=== PATIENT | female | born 1980 | race Two or more races ===

== ENCOUNTER 2018-08-21 16:47 | Emergency (ER) | payer SELFPAY ==
[2018-08-21 16:56] VITALS: BP 121/72; BMI 26.4
--- NOTE | 2018-08-21 17:28 | PDOC ---
History of Present Illness - General Chief Complaint: Respiratory Stated Complaint: FLU SYMPTOMS Time Seen by Provider: 08/21/18 17:16 History Source: Patient Exam Limitations: No Limitations - History of Present Illness Initial Comments: 08/21/18 19:36 Patient is a 38-year-old female past medical history of diabetes, who presents to the ER with 1 day of fever, body aches, sore throat, headache and cough. Patient states she took Motrin this morning with minimal relief of her symptoms. Patient did not receive a flu shot this year. Denies nausea, vomiting , diarrhea, frequency, urgency and hematuria. Triage vital signs notable for tachycardia at 130 and fever of 102.7. Past History - Travel Traveled outside of the country in the last 30 days: No Close contact w/someone who was outside of country & ill: No - Past Medical History Allergies/Adverse Reactions: Allergies Allergy/AdvReac Type Severity Reaction Status Date / Time Iodinated Contrast- Oral and Allergy Verified 08/21/18 16:56 IV Dye [Iodinated Contrast Media - IV Dye] morphine Allergy Verified 08/21/18 16:56 Home Medications: Ambulatory Orders Insulin Glargine,Hum.rec.anlog [Lantus (10mL VIAL) -] 40 units SQ HS 05/31/16 Insulin Lispro [Humalog] 10 unit SQ AC 05/31/16 Acetaminophen [Tylenol -] 650 mg PO Q4H #40 tablet 08/21/18 Albuterol Sulfate Inhaler - [Ventolin HFA Inhaler -] 1 - 2 inh PO Q4H #1 inhaler 08/21/18 Methylprednisolone [Medrol Dose Jonh] 4 mg PO ASDIR #21 tablet 08/21/18 Ondansetron [Zofran Odt -] 4 mg SL TID #10 od.tablet 08/21/18 Oseltamivir Phosphate [Tamiflu] 75 mg PO BID #10 capsule 08/21/18 COPD: No Diabetes: Yes - Immunization History Immunization Up to Date: Yes - Suicide/Smoking/Psychosocial Hx Smoking History: Never smoked Hx Alcohol Use: No Drug/Substance Use Hx: No Substance Use Type: None Hx Substance Use Treatment: No Review of Systems - Review of Systems Able to Perform ROS?: Yes Comments:: 08/21/18 19:09 CONSTITUTIONAL: Present: Fever, chills, body aches Absent: diaphoresis, generalized weakness, malaise, loss of appetite HEENT: Present: rhinorrhea, nasal congestion, throat pain. Absent: difficulty swallowing, mouth swelling, ear pain, eye pain, visual Changes CARDIOVASCULAR: Absent: chest pain, loss of consciousness, palpitations, irregular heart rate, peripheral edema RESPIRATORY: Present: Cough Absent: shortness of breath, dyspnea with exertion, orthopnea, wheezing, stridor, hemoptysis GASTROINTESTINAL: Absent: abdominal pain, abdominal distension, nausea, vomiting, diarrhea, constipation, melena, hematochezia SKIN: Absent: rash, itching, pallor NEUROLOGIC: Present: headache Absent: focal weakness or paresthesias, dizziness, unsteady gait, seizure, mental status changes, bladder or bowel incontinence Is the patient limited Telugu proficient: No *Physical Exam - Vital Signs Last Vital Signs Temp Pulse Resp BP Pulse Ox 102.7 F H 134 H 20 121/72 99 08/21/18 16:54 08/21/18 16:54 08/21/18 16:54 08/21/18 16:54 08/21/18 16:54 - Physical Exam Comments: 08/21/18 19:09 GENERAL: Well developed, well nourished. Awake and alert. Appears uncomfortable HEENT: Normocephalic, atraumatic. PERRLA, EOMI. No conjunctival pallor. Sclera are non- icteric. Moist mucous membranes. Oropharynx is erythematous NECK: Supple. Full ROM. No JVD. Carotid pulses 2+ and symmetric, without bruits. No thyromegaly. No lymphadenopathy. CARDIOVASCULAR: Regular rate and rhythm. No murmurs, rubs, or gallops. Distal pulses are 2+ and symmetric. PULMONARY: No evidence of respiratory distress. Lungs clear to auscultation bilaterally. No wheezing, rales or rhonchi. ABDOMINAL: Soft. Non-tender. Non-distended. No rebound or guarding. No organomegaly. Normoactive bowel sounds. MUSCULOSKELETAL Normal range of motion at all joints. No bony deformities or tenderness. No CVA tenderness. EXTREMITIES: No cyanosis. No clubbing. No edema. No calf tenderness. SKIN: Warm and dry. Normal capillary refill. No rashes. No jaundice. NEUROLOGICAL: Alert, awake, appropriate. Cranial nerves 2-12 intact. No deficits to light touch and temperature in face, upper extremities and lower extremities. No motor deficits in the in face, upper extremities and lower extremities. Normoreflexic in the upper and lower extremities. Normal speech. Toes are down- going bilaterally. Gait is normal without ataxia. PSYCHIATRIC: Cooperative. Good eye contact. Appropriate mood and affect. Moderate Sedation - Procedure Monitoring Vital Signs: Procedure Monitoring Vital Signs Temperature 102.7 F H 08/21/18 16:54 Pulse Rate 134 H 08/21/18 16:54 Respiratory Rate 20 08/21/18 16:54 Blood Pressure 121/72 08/21/18 16:54 O2 Sat by Pulse Oximetry (%) 99 08/21/18 16:54 Medical Decision Making - Medical Decision Making 08/21/18 19:37 Patient is a 38-year-old female who presents to the ER for one day of fever, body aches, sore throat and cough. On exam patient with posterior erythema to the tonsils. Otherwise unremarkable lung sounds are clear bilaterally. Rapid strep and flu are positive at this time. Patient treated for strep throat with Bicillin in the ER. Patient given symptomatic treatment with relief of symptoms. Repeat temp 101.5, HR 95 Discharge home I discussed the physical exam findings, ancillary test results and final diagnoses with the patient. I answered all of the patient's questions. The patient was satisfied with the care received and felt comfortable with the discharge plan and treatment plan. The Patient agrees to follow up with the primary care physician/specialist within 24-72 hours. Return precautions were given. *DC/Admit/Observation/Transfer Diagnosis at time of Disposition: Influenza, Strep pharyngitis - Discharge Dispostion Disposition: HOME Condition at time of disposition: Stable Decision to Admit order: No - Prescriptions Prescriptions: Acetaminophen [Tylenol -] 650 mg PO Q4H #40 tablet Albuterol Sulfate Inhaler - [Ventolin HFA Inhaler -] 1 - 2 inh PO Q4H #1 inhaler Methylprednisolone [Medrol Dose Jonh] 4 mg PO ASDIR #21 tablet Ondansetron [Zofran Odt -] 4 mg SL TID #10 od.tablet Oseltamivir Phosphate [Tamiflu] 75 mg PO BID #10 capsule - Referrals Referrals: Kennedy Xie MD [Staff Physician] - - Patient Instructions Printed Discharge Instructions: DI for Strep Throat, DI for Influenza -- Adult Additional Instructions: You have the flu. This is a virus that will get better on its own in approximately 7-10 days. You will most likely have a fever for 7-10 days because of the flu. This is to be expected. Drink plenty of fluids to prevent dehydration and get plenty of rest. Warm tea and cough drops may help your symptoms as well. Take the tamiflu twice a day for 5 days to help reduce the symptoms of the flu. This medication will not cure the flu. Take the albuterol inhaler every 4 hours for cough Take the steroid pack starting tomorrow as directed Take Tylenol 650mg every 4 hours for fever Take all other medications as prescribed. You have strep throat. This is a bacterial infection. You were treated with a shot of bicillin today in the ED Please throw way your toothbrush 3 days into treatment to prevent reinfection. Please follow up with your primary care doctor next week. Return to emergency department if you have worsening pain, difficulty swallowing , changes in your voice, lightheadedness, dizziness, or any changes in your symptoms. Return to the ED for difficulty breathing, shortness of breath, weakness, or if you have any other changes in your symptoms. Usted tiene la gripe. [place] es un virus que mejorar por s solo en aproximadamente 7-10 reyes. Es muy probable que tenga fiebre amrit 7 a 10 reyes debido a la gripe. [place] es de esperar. Aaliyah muchos lquidos para prevenir la deshidratacin y descanse lo suficiente. El t caliente y las gotas para la tos tambin pueden ayudar a aliviar lluvia sntomas. [place] el tamiflu dos veces al da amrit 5 reyes para ayudar a reducir los sntomas de la gripe. [place] medicamento no curar la gripe. [place] el inhalador de albuterol cada 4 horas para la tos. [place] el paquete de esteroides a partir de maana segn las indicaciones [place] Tylenol 650 mg cada 4 horas para la fiebre. [place] todos los otros medicamentos segn lo prescrito. Tienes estreptococos en la garganta. Esta es marsha infeccin bacteriana. Te trataron con marsha inyeccin de bicilina hoy en el servicio de urgencias. Por favor, deseche davalos cepillo de dientes en el tratamiento amrit 3 reyes para prevenir la reinfeccin. Por favor michael un seguimiento con davalos mdico de atencin primaria la prxima semana. Regrese a la fabian de emergencias si tiene dolor que empeora, dificultad para tragar, cambios en davalos voz, mareos, mareos o cualquier cambio en lluvia sntomas. Regrese a la fabian de emergencias si tiene dificultad para respirar, dificultad para respirar, debilidad o si tiene algn otro cambio en lluvia sntomas. Print Language: ARABIC - Post Discharge Activity Forms/Work/School Notes: Back to Work
[2018-08-21] MEDS ORDERED: ONDANSETRON *ODT* 4 MG TABLET SL ONE (17:40)
[2018-08-21] MEDS ORDERED: IBUPROFEN 400 MG TABLET (FP) PO ONE ×2 (17:40→17:46)
[2018-08-21] MEDS ORDERED: ALBUTEROL SO4 2.5/IPRATROPIUM 0.5 INH SOL 3 ML VIAL.NEB. NEB ONE ×2 (17:46→18:12)
[2018-08-21] MEDS ORDERED: ONDANSETRON *ODT* 4 MG TABLET ONE (17:46)
[2018-08-21] MEDS: ALBUTEROL SO4 2.5/IPRATROPIUM 0.5 INH SOL 3 ML VIAL.NEB. NEB SCH ×4 (17:53→18:59)
[2018-08-21] MEDS ORDERED: DEXAMETHASONE LIQUID 0.5 MG/5 ML 240 ML BULK BOTTLE PO ONE (18:09)
[2018-08-21] MEDS ORDERED: DEXAMETHASONE SOD PHOSPHATE 10 MG/1 ML VIAL ONE (18:12)
[2018-08-21] MEDS ORDERED: PENICILLIN G BENZATHINE 1,200,000 UNIT/2 ML PFS IM ONE (18:26)
[2018-08-21] MEDS ORDERED: PENICILLIN G BENZATHINE 2,400,000 UNIT/4 ML PFS ONE (18:28)
[2018-08-21 19:03] VITALS: PULSE 95; TEMP 101.5
== END 2018-08-21 19:20 | disposition home or self-care (01) ==
LOC: JERFT 16:47
DX: J10.1 Influenza due to other identified influenza virus with other respiratory manifestations (principal); J02.0 Streptococcal pharyngitis; B95.0 Streptococcus, group A, as the cause of diseases classified elsewhere
CPT/HCPCS: 87804; 87880; 99281-25; Q0162

== ENCOUNTER 2018-08-24 02:42 | Emergency (ER) | payer SELFPAY ==
[2018-08-24 02:53] VITALS: BP 146/97; PULSE 94; TEMP 98.7; BMI 26.4
--- NOTE | 2018-08-24 02:53 | PDOC ---
History of Present Illness - General History Source: Patient Exam Limitations: No Limitations - History of Present Illness Initial Comments: 08/24/18 03:09 The patient is a 38 year old female with a significant past medical history of diabetes and kidney stones who presents to the emergency department with back pain for 1 day. The patient reports associated chest pain with breathing as well as forehead pain. It is noted that the patient was seen in the ED recently by which she was noted to be Flu B (+). She denies any fever, chills, nausea, vomiting, diarrhea, constipation or urinary symptoms. She denies any shortness of breath, or dizziness. She denies any other symptoms or complaint. <Nolvia Espinoza - Last Filed: 08/24/18 03:09> <Catarina Banuelos - Last Filed: 08/24/18 05:37> - General Chief Complaint: Chest Pain Stated Complaint: BACK/CHEST PAIN Time Seen by Provider: 08/24/18 02:52 Past History <Nolvia Espinoza - Last Filed: 08/24/18 03:09> - Past Medical History COPD: No Diabetes: Yes - Immunization History Immunization Up to Date: Yes - Suicide/Smoking/Psychosocial Hx Smoking History: Never smoked Have you smoked in the past 12 months: No Information on smoking cessation initiated: No Hx Alcohol Use: No Drug/Substance Use Hx: No Substance Use Type: None Hx Substance Use Treatment: No <Catarina Banuelos - Last Filed: 08/24/18 05:37> - Past Medical History Allergies/Adverse Reactions: Allergies Allergy/AdvReac Type Severity Reaction Status Date / Time Iodinated Contrast- Oral and Allergy Verified 08/24/18 02:53 IV Dye [Iodinated Contrast Media - IV Dye] morphine Allergy Verified 08/24/18 02:53 Home Medications: Ambulatory Orders Albuterol Sulfate Inhaler - [Ventolin HFA Inhaler -] 1 - 2 inh PO Q4H #1 inhaler 08/21/18 Methylprednisolone [Medrol Dose Jonh] 4 mg PO ASDIR #21 tablet 08/21/18 Oseltamivir Phosphate [Tamiflu] 75 mg PO BID #10 capsule 08/21/18 Review of Systems - Review of Systems Able to Perform ROS?: Yes Comments:: 08/24/18 03:09 GENERAL/CONSTITUTIONAL: No fever or chills. No weakness. HEAD, EYES, EARS, NOSE AND THROAT: (+)forehead pain. No change in vision. No ear pain or discharge. No sore throat. GASTROINTESTINAL: No nausea, vomiting, diarrhea or constipation. GENITOURINARY: No dysuria, frequency, or change in urination. CARDIOVASCULAR:(+)chest pain. No shortness of breath. RESPIRATORY: No cough, wheezing, or hemoptysis. MUSCULOSKELETAL: (+)back pain. No joint or muscle swelling or pain. No neck pain. SKIN: No rash NEUROLOGIC: No headache, vertigo, loss of consciousness, or change in strength/ sensation. ENDOCRINE: No increased thirst. No abnormal weight change. HEMATOLOGIC/LYMPHATIC: No anemia, easy bleeding, or history of blood clots. ALLERGIC/IMMUNOLOGIC: No hives or skin allergy. <Nolvia Espinoza - Last Filed: 08/24/18 03:09> *Physical Exam - Vital Signs Last Vital Signs Temp Pulse Resp BP Pulse Ox 98.7 F 94 H 21 H 146/97 97 08/24/18 02:50 08/24/18 02:50 08/24/18 02:50 08/24/18 02:50 08/24/18 02:50 - Physical Exam Comments: 08/24/18 03:09 GENERAL: Awake, in no acute distress HEAD: No signs of trauma EYES: PERRLA, EOMI, sclera anicteric, conjunctiva clear, visual acuity grossly intact ENT: Auricles normal inspection, hearing grossly normal, nares patent, oropharynx clear without exudates. Moist mucosa NECK: Normal ROM, supple, no lymphadenopathy, JVD, or masses LUNGS: Breath sounds equal, clear to auscultation bilaterally. No wheezes, and no crackles. Normal work of breathing. HEART: Regular rate and rhythm, normal S1 and S2, no murmurs, rubs or gallops ABDOMEN: Soft, nontender, normoactive bowel sounds. No guarding, no rebound. No masses. Non-distended. CHEST WALL: BACK: No midline tenderness. EXTREMITIES: Normal range of motion, no edema. No clubbing or cyanosis. No erythema, or tenderness NEUROLOGICAL: Alert, and fully oriented x4, Cranial nerves II through XII grossly intact. Normal speech, normal gait. DTRs 2/4 bilaterally. SKIN: Warm, Dry, normal turgor, no rashes or lesions noted. <Nolvia Espinoza - Last Filed: 08/24/18 03:09> - Vital Signs Last Vital Signs Temp Pulse Resp BP Pulse Ox 98.7 F 94 H 21 H 146/97 97 08/24/18 02:50 08/24/18 02:50 08/24/18 02:50 08/24/18 02:50 08/24/18 02:50 <Catarina Banuelos - Last Filed: 08/24/18 05:37> Moderate Sedation - Procedure Monitoring Vital Signs: Procedure Monitoring Vital Signs Temperature 98.7 F 08/24/18 02:50 Pulse Rate 94 H 08/24/18 02:50 Respiratory Rate 21 H 08/24/18 02:50 Blood Pressure 146/97 08/24/18 02:50 O2 Sat by Pulse Oximetry (%) 97 08/24/18 02:50 <Nolvia Espinoza - Last Filed: 08/24/18 03:09> - Procedure Monitoring Vital Signs: Procedure Monitoring Vital Signs Temperature 98.7 F 08/24/18 02:50 Pulse Rate 94 H 08/24/18 02:50 Respiratory Rate 21 H 08/24/18 02:50 Blood Pressure 146/97 08/24/18 02:50 O2 Sat by Pulse Oximetry (%) 97 08/24/18 02:50 <Catarina Banuelos - Last Filed: 08/24/18 05:37> Heart Score/ECG Review - ECG Intrepretation Comment:: 08/24/18 04:23 EKG shows a normal sinus rhythm at 95 bpm with no acute ST elevations Rhythm strip shows a sinus rhythm at 90-95 bpm <Catarina Banuelos - Last Filed: 08/24/18 05:37> ED Treatment Course - LABORATORY CBC & Chemistry Diagram: 08/24/18 03:05 08/24/18 03:05 <Catarina Banuelos - Last Filed: 08/24/18 05:37> Medical Decision Making - Critical Care Time Total Critical Care Time (minutes): 40 Critical Care Statement: The care of this patient involved high complexity decision making to prevent further life threatening deterioration of the patient 's condition and/or to evaluate & treat vital organ system(s) failure or risk of failure. - Medical Decision Making 08/24/18 04:42 38-year-old female with history of influenza B complaining of chest and back pain increased with coughing Chest x-ray shows no acute infiltrate Troponin is within normal limits There is mild elevation of patient's d-dimer, ordered prior to evaluation due to complaints On exam patient's pain was increased with deep inspiration, patient is now pain- free and resting comfortably after steroids 12 all and a DuoNeb She is not tachycardic There is no hypoxia PE extremely unlikely based on physical exam, CTA canceled due to clinical unlikelihood and ALLERGY to iodine contrast Patient states that she has been noncompliant with her insulin due to insurance issues She will be referred to the medical clinic upon discharge Patient received extensive counseling regarding blood sugar control, she was also made aware that her blood sugar may become activated due to the single dose of steroids which she received, she has agreed to check her blood sugar 3 times daily over the next 48 hours and to return to the emergency department should it remain elevated IV fluid normal saline 2 L bolus infusing at this time with a fingerstick and reevaluation pending 08/24/18 05:36 Patient remains chest pain-free. She is not tachycardic, not hypoxic and repeat fingerstick is 324. She will be discharged on metformin. <Catarina Banuelos - Last Filed: 08/24/18 05:37> *DC/Admit/Observation/Transfer - Attestations Scribe Attestion: 08/24/18 03:10 Documentation prepared by Nolvia Espinoza, acting as medical accountant for Catarina Banuelos DO, MD. <Nolvia Espinoza - Last Filed: 08/24/18 03:09> - Discharge Dispostion Decision to Admit order: No - Attestations Physician Attestion: 08/24/18 04:50 I, Dr Catarina Banuelos, attest that this document has been prepared under my direction and personally reviewed by me in its entirety. I further attest, that it accurately reflects all work, procedures and medical decision making performed by me. Normal axis falsely low doesn't caliber sugars high <Catarina Banuelos - Last Filed: 08/24/18 05:37> Diagnosis at time of Disposition: Pleuritic chest pain, Type 1 diabetes, Influenza - Discharge Dispostion Disposition: HOME Condition at time of disposition: Improved - Referrals Referrals: Kennedy Xie MD [Staff Physician] - - Patient Instructions Additional Instructions: Failure prescription and begin taking her medication today. You have been given follow-up with the medicine clinic. It is imperative that she begin proper treatment for her diabetes. Check your blood sugar 3 times a day as discussed. If your blood sugar remains above 350 after 2 checks return to the emergency department for repeat evaluation. Also return if you develop vomiting fever or return of chest pain. These could be signs of a more serious condition that can be life-threatening if left untreated.
[2018-08-24] MEDS ORDERED: ALBUTEROL SO4 2.5/IPRATROPIUM 0.5 INH SOL 3 ML VIAL.NEB. NEB ONE ×2 (03:02→03:16)
[2018-08-24] MEDS ORDERED: methylPREDNISolone NA SUCC 125 MG/2 ML VIAL IVPB ONE (03:02)
[2018-08-24] MEDS ORDERED: KETOROLAC TROMETHAMINE 30 MG/1 ML VIAL IVPUSH ONE (03:02)
[2018-08-24 03:13] LABS: HEMATOCRIT 41.9 % (32.4-45.2); HEMOGLOBIN 14.7 GM/dL (10.7-15.3); MCH 29.1 pg (25.7-33.7); MCHC 35.1 g/dl (32.0-36.0); MEAN CELL VOLUME 82.8 fl (80-96); MEAN PLT VOLUME 11.1 fl (7.5-11.1); PLATELET COUNT 205 K/MM3 (134-434); RBC 5.06 M/mm3 (3.60-5.2); RDW 14.6 % (11.6-15.6); WHITE BLOOD COUNT 8.6 K/mm3 (4.0-10.0)
[2018-08-24] MEDS ORDERED: KETOROLAC TROMETHAMINE 30 MG/1 ML VIAL ONE (03:16)
[2018-08-24] MEDS ORDERED: methylPREDNISolone NA SUCC 125 MG/2 ML VIAL ONE (03:17)
[2018-08-24] MEDS ORDERED: SODIUM CHLORIDE 1,000 ML IV STA ×2 (03:37→04:25)
[2018-08-24 03:42] LABS: ALK PHOS 134 U/L (45-117); ANION GAP 10 MMOL/L (8-16); BILIRUBIN,TOTAL 0.3 mg/dL (0.2-1); BLOOD UREA NITROGEN 14 mg/dL (7-18); CALCIUM 8.1 mg/dL (8.5-10.1); CHLORIDE 96 mmol/L (98-107); CO2 26 mmol/L (21-32); CREATININE 0.4 mg/dL (0.55-1.3); POTASSIUM 3.7 mmol/L (3.5-5.1); SGOT/AST 28 U/L (15-37); SGPT/ALT 27 U/L (13-61); SODIUM 131 mmol/L (136-145); TOT PROT 7.7 g/dl (6.4-8.2)
[2018-08-24 03:45] LABS: GLUCOSE,RANDOM 388 mg/dL (74-106)
--- NOTE | 2018-08-24 10:44 | EKG ---
Test Reason : Blood Pressure : / mmHG Vent. Rate : 095 BPM Atrial Rate : 095 BPM P-R Int : 126 ms QRS Dur : 080 ms QT Int : 344 ms P-R-T Axes : 045 022 009 degrees QTc Int : 432 ms NORMAL SINUS RHYTHM NORMAL ECG WHEN COMPARED WITH ECG OF 01-JUN-2016 02:52, NO SIGNIFICANT CHANGE WAS FOUND Confirmed by JAYA BUNN MD ([id number]) on 08/24/2018 10:44:13 AM Referred By: Confirmed By:JAYA BUNN MD
--- NOTE | 2018-08-24 21:19 | PDOC ---
*Physical Exam - Vital Signs Last Vital Signs Temp Pulse Resp BP Pulse Ox 98.7 F 94 H 21 H 146/97 100 08/24/18 02:50 08/24/18 02:50 08/24/18 02:50 08/24/18 02:50 08/24/18 03:48 <VinCatarina Salmeron - Last Filed: 08/24/18 21:19> - Vital Signs Last Vital Signs Temp Pulse Resp BP Pulse Ox 98.7 F 94 H 21 H 146/97 100 08/24/18 02:50 08/24/18 02:50 08/24/18 02:50 08/24/18 02:50 08/24/18 03:48 <Mar Marie - Last Filed: 08/24/18 21:21> ED Treatment Course - LABORATORY CBC & Chemistry Diagram: 08/24/18 03:05 08/24/18 03:05 - ADDITIONAL ORDERS Additional order review: 08/24/18 08/24/18 05:32 03:05 RBC 5.06 MCV 82.8 MCHC 35.1 RDW 14.6 MPV 11.1 POC Glucometer 324 - RADIOLOGY Radiology Studies Ordered: Category Date Time Status CHEST PA & LAT [RAD] Stat Radiology 08/24/18 03:39 Completed - Medications Given in the ED: ED Medications Discontinued Medications Generic Name Dose Route Start Last Admin Trade Name Freq PRN Reason Stop Dose Admin Albuterol/Ipratropium 1 amp 08/24/18 03:02 08/24/18 03:44 Duoneb - NEB 08/24/18 03:03 1 amp ONCE ONE Administration Sodium Chloride 1,000 mls @ 1,000 mls/hr 08/24/18 03:37 08/24/18 03:45 Normal Saline - IV 08/24/18 04:36 1,000 mls/hr ASDIR STA Administration Sodium Chloride 1,000 mls @ 1,000 mls/hr 08/24/18 04:25 08/24/18 04:42 Normal Saline - IV 08/24/18 05:24 1,000 mls/hr ASDIR STA Administration Ketorolac Tromethamine 30 mg 08/24/18 03:02 08/24/18 03:45 Toradol Injection - IVPUSH 08/24/18 03:03 30 mg ONCE ONE Administration Methylprednisolone Sodium Succinate 125 mg 08/24/18 03:02 08/24/18 03:45 Solu-Medrol - IVPB 08/24/18 03:03 125 mg ONCE ONE Administration <Catarina Banuelos Faviola - Last Filed: 08/24/18 21:19> - LABORATORY CBC & Chemistry Diagram: 08/24/18 03:05 08/24/18 03:05 - ADDITIONAL ORDERS Additional order review: 08/24/18 08/24/18 05:32 03:05 RBC 5.06 MCV 82.8 MCHC 35.1 RDW 14.6 MPV 11.1 POC Glucometer 324 - Medications Given in the ED: ED Medications Discontinued Medications Generic Name Dose Route Start Last Admin Trade Name Rachel PRN Reason Stop Dose Admin Albuterol/Ipratropium 1 amp 08/24/18 03:02 08/24/18 03:44 Duoneb - NEB 08/24/18 03:03 1 amp ONCE ONE Administration Sodium Chloride 1,000 mls @ 1,000 mls/hr 08/24/18 03:37 08/24/18 03:45 Normal Saline - IV 08/24/18 04:36 1,000 mls/hr ASDIR STA Administration Sodium Chloride 1,000 mls @ 1,000 mls/hr 08/24/18 04:25 08/24/18 04:42 Normal Saline - IV 08/24/18 05:24 1,000 mls/hr ASDIR STA Administration Ketorolac Tromethamine 30 mg 08/24/18 03:02 08/24/18 03:45 Toradol Injection - IVPUSH 08/24/18 03:03 30 mg ONCE ONE Administration Methylprednisolone Sodium Succinate 125 mg 08/24/18 03:02 08/24/18 03:45 Solu-Medrol - IVPB 08/24/18 03:03 125 mg ONCE ONE Administration <Mar Marie - Last Filed: 08/24/18 21:21> Medical Decision Making - Medical Decision Making 08/24/18 21:20 Patient was called at 9:15PM 08/24/2018. As per , her symptoms has since resolved since discharge and blood glucose levels have normalized. <Mar Marie - Last Filed: 08/24/18 21:21> *DC/Admit/Observation/Transfer <LonniejoniLoco coronaCatarina Faviola - Last Filed: 08/24/18 21:19> - Attestations Scribe Attestion: 08/24/18 21:21 Documentation prepared by Mar Marie, acting as medical detail representative for Catarina BanuelosDO. <Mar Marie - Last Filed: 08/24/18 21:21> Diagnosis at time of Disposition: Pleuritic chest pain, Type 1 diabetes, Influenza - Discharge Dispostion Disposition: HOME Condition at time of disposition: Improved - Prescriptions Prescriptions: Metformin HCl [Glucophage] 500 mg PO BID #28 tablet - Referrals Referrals: Kennedy Xie MD [Staff Physician] - - Patient Instructions Additional Instructions: Fill your prescription and begin taking yo things lastur medication today. You have been given follow-up with the medicine clinic. It is imperative that you begin proper treatment for your diabetes. Check your blood sugar 3 times a day as discussed. If your blood sugar remains above 350 after 2 checks return to the emergency department for repeat evaluation. Also, return if you develop vomiting fever or return of chest pain. These could be signs of a more serious condition that can be life-threatening if left untreated. - Post Discharge Activity
== END 2018-08-24 05:54 | disposition home or self-care (01) ==
LOC: JER 02:42
PROC: 3E0F7GC Introduction of Other Therapeutic Substance into Respiratory Tract, Via Natural or Artificial Opening (ICD-10-PCS; principal; 2018-08-24)
PROC: 3E0337Z Introduction of Electrolytic and Water Balance Substance into Peripheral Vein, Percutaneous Approach (ICD-10-PCS; 2018-08-24)
PROC: 3E0333Z Introduction of Anti-inflammatory into Peripheral Vein, Percutaneous Approach (ICD-10-PCS; 2018-08-24)
PROC: 3E0333Z Introduction of Anti-inflammatory into Peripheral Vein, Percutaneous Approach (ICD-10-PCS; 2018-08-24)
DX: R07.89 Other chest pain (principal); E10.65 Type 1 diabetes mellitus with hyperglycemia; Z79.4 Long term (current) use of insulin; J10.1 Influenza due to other identified influenza virus with other respiratory manifestations; Z87.442 Personal history of urinary calculi
CPT/HCPCS: 36415; 71046-TC-FY; 80053; 82962; 84484; 84703; 85027; 85379; 93005; 93010; 99284-25; J7030

== ENCOUNTER 2020-09-18 07:52 | Inpatient (IN) | payer OTHER ==
[2020-09-18] MEDS ORDERED: ONDANSETRON 4 MG/2 ML VIAL IVPUSH ONE (09:35)
[2020-09-18] MEDS ORDERED: SODIUM CHLORIDE 1,000 ML IV STA ×2 (09:35→14:21)
[2020-09-18] MEDS ORDERED: ACETAMINOPHEN 1000 MG/100 ML VIAL (NON FORMULARY) IVPB ONE (09:35)
[2020-09-18] MEDS ORDERED: ACETAMINOPHEN INJECTION 100 ML IVPB ONE (10:18)
[2020-09-18] MEDS ORDERED: ONDANSETRON 4 MG/2 ML VIAL ONE (10:18)
[2020-09-18 11:05] LABS: VENOUS BASE EXCESS -3.1 mmol/L (-2-2); VENOUS O2 SATURATION 56.6 % (70-80); VENOUS PH 7.38 (7.310-7.410)
[2020-09-18 11:07] LABS: BASO % 0.2 % (0-2.0); EOS % 0.2 % (0-4.5); HEMATOCRIT 45.7 % (32.4-45.2); HEMOGLOBIN 15.8 GM/dL (10.7-15.3); LYMPH % 5.4 % (8-40); MCH 29.6 pg (25.7-33.7); MCHC 34.5 g/dl (32.0-36.0); MEAN CELL VOLUME 85.9 fl (80-96); MEAN PLT VOLUME 11.6 fl (7.5-11.1); MONO % 4.3 % (3.8-10.2); NEUT % 89.9 % (42.8-82.8); PLATELET COUNT 232 K/MM3 (134-434); RBC 5.32 M/mm3 (3.60-5.2); RDW 12.8 % (11.6-15.6); WHITE BLOOD COUNT 9.6 K/mm3 (4.0-10.0)
[2020-09-18 11:13] LABS: INR 0.98 (0.83-1.09); PROTHROMBIN TIME (PATIENT) 11.9 SEC (9.7-13.0)
[2020-09-18 11:40] LABS: CALCIUM 9.1 mg/dL (8.5-10.1)
[2020-09-18 11:41] LABS: ALBUMIN 3.6 g/dl (3.4-5.0); BLOOD UREA NITROGEN 15.5 mg/dL (7-18)
[2020-09-18 11:44] LABS: CREATININE 0.5 mg/dL (0.55-1.3)
[2020-09-18 11:45] LABS: TOT PROT 8.6 g/dl (6.4-8.2)
[2020-09-18 12:00] LABS: BILIRUBIN,TOTAL 0.4 mg/dL (0.2-1)
[2020-09-18 12:14] LABS: URINE APPEARANCE CLEAR; URINE BILIRUBIN NEGATIVE (NEGATIVE); URINE COLOR YELLOW; URINE GLUCOSE (UA) 3+ (NEGATIVE)
[2020-09-18 12:17] LABS: URINE PROTEIN 2+ (NEGATIVE)
[2020-09-18 12:18] LABS: URINE KETONE 2+ (NEGATIVE); URINE LEUK ESTERASE NEGATIVE (NEGATIVE); URINE NITRITE NEGATIVE (NEGATIVE); URINE RBC 5 /uL (0-23.9); URINE UROBILINOGEN 0.2 mg/dL (0.2-1.0); URINE WBC 27.4 /uL (0-25.8)
[2020-09-18 12:19] LABS: EPI CELLS 17.8 /uL (0-25.1); HYALINE CASTS 0.25 /uL (0-3.1); URINE BACTERIA 1219.6 /uL (0-1359)
[2020-09-18] MEDS ORDERED: PIPERACILLIN/TAZOB 4.5 GM 4.5 GM in DEXTROSE 5%-WATER 100 ML IVPB ONE (15:55)
[2020-09-18] MEDS ORDERED: CEFTRIAXONE 1 GM in DEXTROSE 5%-WATER - 50 ML IVPB ONE (17:44)
[2020-09-18] MEDS ORDERED: PIPERACILLIN/TAZOB 4.5 GM 4.5 GM/100 ML BAG IVPB ONE (18:32)
[2020-09-18] MEDS ORDERED: CEFTRIAXONE 1 GM/50 ML BAG ONE (18:32)
[2020-09-18] MEDS ORDERED: ACETAMINOPHEN 325 MG TABLET (FP) PO ONE (20:11)
[2020-09-18 21:04] VITALS: BMI 27.4
[2020-09-18] MEDS: INSULIN (LEVEMIR) 100 UNITS/ML UNITS SQ SCH (21:23)
[2020-09-19] MEDS ORDERED: cefTRIAXone SODIUM 1 GM VIAL ONE (01:48)
[2020-09-19] MEDS ORDERED: DEXTROSE 5%-WATER - 50 ML IVPB ONE (01:49)
[2020-09-19] MEDS ORDERED: CEFTRIAXONE 1 GM in DEXTROSE 5%-WATER - 50 ML IVPB ONE (02:00)
[2020-09-19] MEDS: INSULIN (LEVEMIR) 100 UNITS/ML UNITS SQ SCH ×2 (06:07→21:01)
[2020-09-19 07:38] LABS: BLOOD UREA NITROGEN 7.2 mg/dL (7-18)
[2020-09-19 07:39] LABS: CALCIUM 7.9 mg/dL (8.5-10.1)
[2020-09-19 07:41] LABS: BASO % 0.2 % (0-2.0); EOS % 0.8 % (0-4.5); HEMOGLOBIN 12.5 GM/dL (10.7-15.3); LYMPH % 21.5 % (8-40); MCH 29.1 pg (25.7-33.7); MCHC 33.7 g/dl (32.0-36.0); MEAN CELL VOLUME 86.2 fl (80-96); MEAN PLT VOLUME 11.8 fl (7.5-11.1); MONO % 11.4 % (3.8-10.2); NEUT % 66.1 % (42.8-82.8); PLATELET COUNT 205 K/MM3 (134-434); RBC 4.29 M/mm3 (3.60-5.2); WHITE BLOOD COUNT 5.6 K/mm3 (4.0-10.0)
[2020-09-19 07:42] LABS: CREATININE 0.5 mg/dL (0.55-1.3); PHOSPHOROUS 3.5 mg/dL (2.5-4.9)
[2020-09-19 07:43] LABS: BILIRUBIN,TOTAL 1.1 mg/dL (0.2-1)
[2020-09-19 07:49] LABS: ALBUMIN 2.7 g/dl (3.4-5.0); TOT PROT 6.2 g/dl (6.4-8.2)
[2020-09-19] MEDS: ENOXAPARIN NA (PORCINE) 40 MG/0.4 ML DISP.SYRIN SQ SCH (09:56)
[2020-09-19] MEDS ORDERED: PNEUMOC 13-VAL CONJ-DIP CRM/PF 0.5 ML DISP.SYRIN IM ONE (10:00)
[2020-09-19] MEDS ORDERED: FLU VACCINE (FLULAVAL) PF 60 MCG/0.5 ML SYRINGE 2020-2021 IM ONE (10:00)
[2020-09-19] MEDS ORDERED: PNEUMOCOCCAL 23 VACCINE 0.5 ML VIAL IM ONE (10:00)
[2020-09-20] MEDS: INSULIN (LEVEMIR) 100 UNITS/ML UNITS SQ SCH (06:01)
[2020-09-20 07:30] LABS: BASO % 0.2 % (0-2.0); EOS % 0.3 % (0-4.5); HEMATOCRIT 36.3 % (32.4-45.2); HEMOGLOBIN 12.3 GM/dL (10.7-15.3); LYMPH % 16.7 % (8-40); MCH 29.2 pg (25.7-33.7); MCHC 33.9 g/dl (32.0-36.0); MEAN PLT VOLUME 11.2 fl (7.5-11.1); NEUT % 73.8 % (42.8-82.8); PLATELET COUNT 220 K/MM3 (134-434); RBC 4.22 M/mm3 (3.60-5.2); WHITE BLOOD COUNT 8.5 K/mm3 (4.0-10.0)
[2020-09-20 07:31] LABS: BLOOD UREA NITROGEN 11.4 mg/dL (7-18); CALCIUM 8.5 mg/dL (8.5-10.1)
[2020-09-20 07:32] LABS: ALBUMIN 2.9 g/dl (3.4-5.0)
[2020-09-20 07:34] LABS: BILIRUBIN,TOTAL 0.2 mg/dL (0.2-1); CREATININE 0.3 mg/dL (0.55-1.3); TOT PROT 6.6 g/dl (6.4-8.2)
[2020-09-20 07:35] LABS: PHOSPHOROUS 3.5 mg/dL (2.5-4.9)
[2020-09-20] MEDS: ENOXAPARIN NA (PORCINE) 40 MG/0.4 ML DISP.SYRIN SQ SCH (09:13)
[2020-09-20 13:37] VITALS: BP 125/74; PULSE 85; TEMP 98.6
[2020-09-21 16:12] LABS: HEP B CORE AB, TOT Negative (Negative)
== END 2020-09-20 18:24 | disposition home or self-care (01) | DRG 251 ==
LOC: JER 07:52 → JERBED 17:18 → J7W 20:04
PROVIDERS: ADMIT Internal Medicine; ATTEND Internal Medicine
DX: R10.9 Unspecified abdominal pain (principal); E11.65 Type 2 diabetes mellitus with hyperglycemia; Z79.4 Long term (current) use of insulin; R74.01 Elevation of levels of liver transaminase levels; R79.89 Other specified abnormal findings of blood chemistry; E80.6 Other disorders of bilirubin metabolism
CPT/HCPCS: 36415; 71046-TC-FY; 74181-TC; 76705-TC; 80053; 80074; 80307; 81003; 82010; 82550; 82803; 82962; 83036; 83605; 83690; 83735; 84100; 84703; 85025; 85610; 86704; 86706; 86707; 86708; 86709; 86803; 87040; 87086; 87186; 87340; 87799; 90732; 93005; 93010; 93976; 99285-25; C9803; G0008; G0009; J0131; Q2036; U0003

== ENCOUNTER 2021-07-20 18:55 | Emergency (ER) | payer OTHER ==
[2021-07-20 19:20] VITALS: BP 119/76; PULSE 94; TEMP 97.8; BMI 23.4
[2021-07-20] MEDS ORDERED: METOCLOPRAMIDE HCL INJECTION 10 MG/2 ML VIAL IVPUSH ONE (19:39)
[2021-07-20] MEDS ORDERED: ACETAMINOPHEN 500 MG TABLET (FP) PO ONE (19:39)
[2021-07-20] MEDS ORDERED: SODIUM CHLORIDE 1,000 ML IV STA (19:39)
[2021-07-20] MEDS ORDERED: ACETAMINOPHEN 325 MG TABLET (FP) ONE (20:00)
[2021-07-20] MEDS ORDERED: METOCLOPRAMIDE HCL INJECTION 10 MG/2 ML VIAL ONE (20:01)
== END 2021-07-20 22:44 | disposition home or self-care (01) ==
LOC: JER 18:55
PROC: 3E033GC Introduction of Other Therapeutic Substance into Peripheral Vein, Percutaneous Approach (ICD-10-PCS; principal; 2021-07-20)
DX: B34.9 Viral infection, unspecified (principal)
CPT/HCPCS: 71046-TC-FY; 96361; 96374; 96375; 99284-25; C9803; U0003; U0005

== ENCOUNTER 2021-07-28 11:00 | Emergency (ER) | payer OTHER ==
[2021-07-28 11:10] VITALS: BP 121/81; PULSE 90; TEMP 97.9; BMI 24.4
[2021-07-28] MEDS ORDERED: ACETAMINOPHEN 500 MG TABLET (FP) PO ONE (12:37)
[2021-07-28] MEDS ORDERED: ACETAMINOPHEN 500 MG TABLET (FP) ONE (12:38)
[2021-07-28 12:58] LABS: EPI CELLS 10 /uL (0-25.1); HYALINE CASTS 0 /uL (0-3.1); URINE APPEARANCE CLEAR; URINE BACTERIA 15 /uL (0-1359); URINE BILIRUBIN NEGATIVE (NEGATIVE); URINE COLOR ORANGE; URINE GLUCOSE (UA) 3+ (NEGATIVE); URINE KETONE 1+ (NEGATIVE); URINE LEUK ESTERASE NEGATIVE (NEGATIVE); URINE NITRITE NEGATIVE (NEGATIVE); URINE PROTEIN 3+ (NEGATIVE); URINE RBC 4620 /uL (0-23.9); URINE UROBILINOGEN 0.2 mg/dL (0.2-1.0); URINE WBC 41 /uL (0-25.8)
[2021-07-28 13:01] LABS: BASO % 0.3 % (0-2.0); EOS % 0.7 % (0-4.5); HEMATOCRIT 44.1 % (32.4-45.2); LYMPH % 17.7 % (8-40); MCH 28.6 pg (25.7-33.7); MEAN CELL VOLUME 84.2 fl (80-96); MEAN PLT VOLUME 10.8 fl (7.5-11.1); MONO % 6.5 % (3.8-10.2); NEUT % 74.8 % (42.8-82.8); PLATELET COUNT 236 10^3/uL (134-434); RBC 5.24 M/mm3 (3.60-5.2); RDW 13.5 % (11.6-15.6); WHITE BLOOD COUNT 10.7 K/mm3 (4.0-10.0)
[2021-07-28 13:07] LABS: HCG,QUALITATIVE URINE Negative
[2021-07-28 13:27] LABS: BLOOD UREA NITROGEN 8.2 mg/dL (7-18)
[2021-07-28 13:31] LABS: CREATININE 0.4 mg/dL (0.55-1.3)
[2021-07-28] MEDS ORDERED: FLUCONAZOLE 150 MG TABLET PO ONE ×2 (15:05→15:07)
== END 2021-07-28 15:12 | disposition home or self-care (01) ==
LOC: JER 11:00 → JERFT 11:00
DX: B37.3 Candidiasis of vulva and vagina (principal)
CPT/HCPCS: 36415; 74176-TC; 80048; 81003; 84703; 85025; 87070; 87077; 87086; 87205; 87491; 87591; 87661; 99284-25

== ENCOUNTER 2022-04-20 23:32 | Inpatient (IN) | payer OTHER ==
[2022-04-21] MEDS ORDERED: ONDANSETRON 4 MG/2 ML VIAL IVPUSH ONE (01:17)
[2022-04-21] MEDS ORDERED: FAMOTIDINE 20 MG/50 ML IVPB 20 MG/50 ML MG IVPB ONE ×2 (01:17→02:56)
[2022-04-21] MEDS ORDERED: MAG HYDROX/AL HYDROX/SIMETH -MYLANTA- ORAL SUSPENSION PO ONE (01:17)
[2022-04-21] MEDS ORDERED: SUCRALFATE 1 GM TABLET (FP) PO ONE (01:17)
[2022-04-21] MEDS ORDERED: ACETAMINOPHEN 1000 MG/100 ML BAG IVPB ONE ×2 (01:17→02:41)
[2022-04-21] MEDS ORDERED: LACTATED RINGERS SOLUTION 1000 ML INFUS.BAG IV ONE (02:54)
[2022-04-21] MEDS ORDERED: ONDANSETRON 4 MG/2 ML VIAL ONE (02:56)
[2022-04-21] MEDS ORDERED: ACETAMINOPHEN INJECTION 100 ML IVPB ONE (02:56)
[2022-04-21 03:35] LABS: VENOUS BASE EXCESS 1.6 mmol/L (-2-2); VENOUS O2 SATURATION 71.2 % (70-80); VENOUS PCO2 40.6 mmHg (38-52); VENOUS PH 7.426 (7.310-7.410)
[2022-04-21 03:40] LABS: EPI CELLS 30 /uL (0-25.1); HYALINE CASTS 1 /uL (0-3.1); URINE APPEARANCE CLEAR; URINE BACTERIA 485 /uL (0-1359); URINE BILIRUBIN NEGATIVE (NEGATIVE); URINE COLOR YELLOW; URINE GLUCOSE (UA) 3+ (NEGATIVE); URINE KETONE 2+ (NEGATIVE); URINE LEUK ESTERASE NEGATIVE (NEGATIVE); URINE NITRITE NEGATIVE (NEGATIVE); URINE PROTEIN 3+ (NEGATIVE); URINE RBC 13 /uL (0-23.9); URINE UROBILINOGEN 0.2 mg/dL (0.2-1.0); URINE WBC 46 /uL (0-25.8)
[2022-04-21 03:41] LABS: INR 0.92 (0.83-1.09); PROTHROMBIN TIME (PATIENT) 10.6 SEC (9.7-13.0)
[2022-04-21 03:48] LABS: CHLORIDE 101 mmol/L (98-107); SODIUM 134 mmol/L (136-145)
[2022-04-21 03:51] LABS: ALBUMIN 3.4 g/dl (3.4-5.0); ANION GAP 9 MMOL/L (8-16); BLOOD UREA NITROGEN 10.5 mg/dL (7-18); CO2 24 mmol/L (21-32); GLUCOSE,RANDOM 282 mg/dL (74-106); LIPASE 49 U/L (73-393)
[2022-04-21 03:53] LABS: CREATININE 0.5 mg/dL (0.55-1.3)
[2022-04-21 03:54] LABS: SGOT/AST 83 U/L (15-37)
[2022-04-21 03:55] LABS: BILIRUBIN,TOTAL 0.4 mg/dL (0.2-1); TOT PROT 8.1 g/dl (6.4-8.2)
[2022-04-21 03:56] LABS: ALK PHOS 103 U/L (45-117)
[2022-04-21 04:22] LABS: BASO % 0.2 % (0-2.0); EOS % 0.1 % (0-4.5); HEMATOCRIT 35.3 % (32.4-45.2); HEMOGLOBIN 11.9 GM/dL (10.7-15.3); LYMPH % 7.7 % (8-40); MCH 28.2 pg (25.7-33.7); MCHC 33.8 g/dl (32.0-36.0); MEAN CELL VOLUME 83.5 fl (80-96); MEAN PLT VOLUME 10.7 fl (7.5-11.1); MONO % 5.2 % (3.8-10.2); NEUT % 86.8 % (42.8-82.8); PLATELET COUNT 206 10^3/uL (134-434); RBC 4.23 M/mm3 (3.60-5.2); RDW 13.4 % (11.6-15.6); WHITE BLOOD COUNT 15.9 K/mm3 (4.0-10.0)
[2022-04-21 04:40] LABS: CALCIUM 8.1 mg/dL (8.5-10.1)
[2022-04-21 04:41] LABS: BLOOD UREA NITROGEN 8.8 mg/dL (7-18)
[2022-04-21 04:44] LABS: CREATININE 0.4 mg/dL (0.55-1.3)
[2022-04-21 04:56] LABS: SGPT/ALT 25 U/L (13-61)
[2022-04-21] MEDS ORDERED: INSULIN (NOVOLOG) ASPART 100 UNITS/ML 10ML VIAL SQ ONE (05:06)
[2022-04-21] MEDS ORDERED: POTASSIUM CHLORIDE TABS 20 MEQ TABLET.ER (FP) PO ONE ×2 (05:08→05:32)
[2022-04-21] MEDS ORDERED: KCL 10 MEQ IVPB 10 MEQ/100 ML INFUS.BAG IVPB ONE (05:32)
[2022-04-21] MEDS ORDERED: PIPERACILLIN/TAZOB 3.375 GM 3.375 GM/50 ML BAG IVPB ONE (05:33)
[2022-04-21] MEDS: KCL 10 MEQ IVPB 10 MEQ/100 ML INFUS.BAG IVPB SCH ×3 (05:42→09:28)
[2022-04-21] MEDS: SODIUM CHLORIDE 1,000 ML IV SCH ×3 (05:42→23:23)
[2022-04-21 05:46] LABS: MAGNESIUM 1.8 mg/dL (1.8-2.4)
[2022-04-21 06:59] VITALS: BMI 24.3
[2022-04-21] MEDS: INSULIN SLIDING SCALE (NOVOLOG) 1 VIAL SQ SCH ×4 (07:36→21:09)
[2022-04-21] MEDS ORDERED: METOCLOPRAMIDE HCL INJECTION 10 MG/2 ML VIAL IVPUSH SCH (08:30)
[2022-04-21 08:32] LABS: YEAST MANY PRESENT (NEGATIVE)
[2022-04-21] MEDS ORDERED: PIPERACILLIN/TAZOB 3.375 GM 3.375 GM in DEXTROSE 5%-WATER - 50 ML IVPB ONE (08:45)
[2022-04-21 09:00] LABS: CALCIUM 8.5 mg/dL (8.5-10.1)
[2022-04-21 09:04] LABS: CREATININE 0.4 mg/dL (0.55-1.3)
[2022-04-21] MEDS: PANTOPRAZOLE SODIUM 40 MG VIAL IVPUSH SCH (09:40)
[2022-04-21] MEDS: METOCLOPRAMIDE HCL INJECTION 10 MG/2 ML VIAL IVPB SCH ×2 (09:40→16:34)
[2022-04-21] MEDS: ENOXAPARIN NA (PORCINE) 40 MG/0.4 ML DISP.SYRIN SQ SCH (09:40)
[2022-04-21] MEDS: ACETAMINOPHEN 325 MG TABLET (FP) PO PRN ×2 (12:02→18:33)
[2022-04-21] MEDS ORDERED: CEFTRIAXONE 1 GM in DEXTROSE 5%-WATER - 50 ML IVPB SCH (16:45)
[2022-04-21] MEDS: PIPERACILLIN/TAZOB 3.375 GM 3.375 GM in DEXTROSE 5%-WATER - 50 ML IVPB SCH (20:47)
[2022-04-22] MEDS: PIPERACILLIN/TAZOB 3.375 GM 3.375 GM in DEXTROSE 5%-WATER - 50 ML IVPB SCH ×4 (02:08→11:44)
[2022-04-22 02:22] LABS: PH,URINE 5.5 (5.0-8.0); URINE APPEARANCE CLEAR; URINE BILIRUBIN NEGATIVE (NEGATIVE); URINE COLOR YELLOW; URINE GLUCOSE (UA) 3+ (NEGATIVE); URINE KETONE 1+ (NEGATIVE); URINE LEUK ESTERASE NEGATIVE (NEGATIVE); URINE NITRITE NEGATIVE (NEGATIVE); URINE PROTEIN TRACE (NEGATIVE); URINE UROBILINOGEN 0.2 mg/dL (0.2-1.0)
[2022-04-22] MEDS: ACETAMINOPHEN 325 MG TABLET (FP) PO PRN (02:53)
[2022-04-22] MEDS: INSULIN SLIDING SCALE (NOVOLOG) 1 VIAL SQ SCH ×3 (06:17→16:32)
[2022-04-22] MEDS ORDERED: INSULIN (LEVEMIR) 100 UNITS/ML UNITS SQ ONE (08:26)
[2022-04-22] MEDS: PANTOPRAZOLE SODIUM 40 MG VIAL IVPUSH SCH (09:43)
[2022-04-22] MEDS: ENOXAPARIN NA (PORCINE) 40 MG/0.4 ML DISP.SYRIN SQ SCH (09:43)
[2022-04-22 10:25] LABS: BASO % 0.2 % (0-2.0); EOS % 0.5 % (0-4.5); HEMATOCRIT 33.4 % (32.4-45.2); HEMOGLOBIN 11.1 GM/dL (10.7-15.3); LYMPH % 17.1 % (8-40); MCH 27.9 pg (25.7-33.7); MCHC 33.2 g/dl (32.0-36.0); MEAN CELL VOLUME 83.9 fl (80-96); MEAN PLT VOLUME 11.3 fl (7.5-11.1); MONO % 8.4 % (3.8-10.2); NEUT % 73.8 % (42.8-82.8); PLATELET COUNT 203 10^3/uL (134-434); RBC 3.98 M/mm3 (3.60-5.2); RDW 13.7 % (11.6-15.6); WHITE BLOOD COUNT 11.2 K/mm3 (4.0-10.0)
[2022-04-22 10:57] LABS: BLOOD UREA NITROGEN 5.2 mg/dL (7-18); CALCIUM 8.3 mg/dL (8.5-10.1); MAGNESIUM 2.1 mg/dL (1.8-2.4)
[2022-04-22 11:00] LABS: CREATININE 0.2 mg/dL (0.55-1.3); PHOSPHOROUS 2.2 mg/dL (2.5-4.9)
[2022-04-22 11:05] LABS: BILIRUBIN,TOTAL 0.3 mg/dL (0.2-1)
[2022-04-22 11:16] LABS: ALBUMIN 2.5 g/dl (3.4-5.0); TOT PROT 5.9 g/dl (6.4-8.2)
[2022-04-22 13:01] LABS: HIV INTERPRETATION NEGATIVE (NEGATIVE)
[2022-04-22] MEDS ORDERED: POTASSIUM PHOSPHATE 15 MM in SODIUM CHLORIDE 250 ML IVPB ONE (14:00)
[2022-04-22] MEDS: MAG HYDROX/AL HYDROX/SIMETH 30 ML UNIT-DOSE CUP PO SCH (17:40)
[2022-04-23] MEDS: MAG HYDROX/AL HYDROX/SIMETH 30 ML UNIT-DOSE CUP PO SCH ×3 (00:30→12:04)
[2022-04-23] MEDS: SODIUM CHLORIDE 1,000 ML IV SCH (06:04)
[2022-04-23] MEDS: INSULIN SLIDING SCALE (NOVOLOG) 1 VIAL SQ SCH ×3 (06:05→17:01)
[2022-04-23] MEDS ORDERED: glipiZIDE 5 MG TABLET (FP) PO SCH (07:00)
[2022-04-23] MEDS: ENOXAPARIN NA (PORCINE) 40 MG/0.4 ML DISP.SYRIN SQ SCH (09:35)
[2022-04-23] MEDS ORDERED: PANTOPRAZOLE 40 MG TABLET PO SCH (10:00)
[2022-04-23 11:25] LABS: HEMATOCRIT 37.3 % (32.4-45.2); HEMOGLOBIN 12.4 GM/dL (10.7-15.3); MCH 27.8 pg (25.7-33.7); MCHC 33.2 g/dl (32.0-36.0); MEAN CELL VOLUME 83.7 fl (80-96); MEAN PLT VOLUME 11.7 fl (7.5-11.1); PLATELET COUNT 212 10^3/uL (134-434); RBC 4.46 M/mm3 (3.60-5.2); RDW 13.6 % (11.6-15.6); WHITE BLOOD COUNT 6.7 K/mm3 (4.0-10.0)
[2022-04-23 11:50] LABS: BLOOD UREA NITROGEN 5.9 mg/dL (7-18); CALCIUM 8.8 mg/dL (8.5-10.1)
[2022-04-23 11:51] LABS: ALBUMIN 2.8 g/dl (3.4-5.0); MAGNESIUM 2.3 mg/dL (1.8-2.4)
[2022-04-23 11:54] LABS: CREATININE 0.3 mg/dL (0.55-1.3); PHOSPHOROUS 2.9 mg/dL (2.5-4.9)
[2022-04-23 11:55] LABS: BILIRUBIN,TOTAL 0.2 mg/dL (0.2-1); TOT PROT 6.8 g/dl (6.4-8.2)
[2022-04-23 15:36] VITALS: BP 111/66; PULSE 86; RESP 18; TEMP 98.1
== END 2022-04-23 17:01 | disposition left against medical advice (07) | DRG 720 ==
LOC: JER 23:32 → JERBED 04-21 04:02 → J5S 04-21 06:14
PROVIDERS: ADMIT Internal Medicine; ATTEND Internal Medicine
DX: A41.9 Sepsis, unspecified organism (principal); E11.65 Type 2 diabetes mellitus with hyperglycemia; D72.829 Elevated white blood cell count, unspecified; R50.9 Fever, unspecified; R74.01 Elevation of levels of liver transaminase levels
CPT/HCPCS: 0241U-QW; 36415; 71046-TC-FY; 74176-TC; 76705-TC; 80048; 80053; 81003; 82010; 82803; 82962; 83036; 83605; 83690; 83735; 84100; 84443; 84484; 84703; 85025; 85027; 85610; 85730; 86900; 87040; 87086; 87389; 87633; 93005; 93010; 99285-25; C9803-CS; U0003; U0005

== ENCOUNTER 2022-04-28 22:42 | Emergency (ER) | payer OTHER ==
[2022-04-28 22:47] VITALS: BP 109/76; PULSE 90; RESP 18; TEMP 97.7; BMI 24.4
[2022-04-28] MEDS ORDERED: ACETAMINOPHEN 1000 MG/100 ML BAG IVPB ONE (23:06)
[2022-04-28] MEDS ORDERED: LACTATED RINGERS SOLUTION 1000 ML INFUS.BAG IV ONE (23:06)
[2022-04-28 23:33] LABS: HCG,QUALITATIVE URINE Negative; PH,URINE 5.5 (5.0-8.0); URINE APPEARANCE CLEAR; URINE BILIRUBIN NEGATIVE (NEGATIVE); URINE COLOR YELLOW; URINE GLUCOSE (UA) 3+ (NEGATIVE); URINE KETONE NEGATIVE (NEGATIVE); URINE LEUK ESTERASE NEGATIVE (NEGATIVE); URINE NITRITE NEGATIVE (NEGATIVE); URINE PROTEIN TRACE (NEGATIVE); URINE UROBILINOGEN 0.2 mg/dL (0.2-1.0)
[2022-04-28] MEDS ORDERED: ACETAMINOPHEN INJECTION 100 ML IVPB ONE (23:58)
[2022-04-29 00:09] LABS: BASO % 0.4 % (0-2.0); EOS % 1.3 % (0-4.5); HEMATOCRIT 36.6 % (32.4-45.2); HEMOGLOBIN 12.3 GM/dL (10.7-15.3); LYMPH % 38.4 % (8-40); MCH 28.3 pg (25.7-33.7); MCHC 33.7 g/dl (32.0-36.0); MEAN PLT VOLUME 10.3 fl (7.5-11.1); MONO % 7.5 % (3.8-10.2); NEUT % 52.4 % (42.8-82.8); PLATELET COUNT 279 10^3/uL (134-434); RBC 4.35 M/mm3 (3.60-5.2); RDW 13.4 % (11.6-15.6); WHITE BLOOD COUNT 8.5 K/mm3 (4.0-10.0)
[2022-04-29 00:30] LABS: CALCIUM 9.4 mg/dL (8.5-10.1)
[2022-04-29] MEDS ORDERED: CALCIUM GLUCONATE 10% - 1,000 MG/10 ML VIAL IVPUSH ONE (00:32)
[2022-04-29 00:34] LABS: CREATININE 0.6 mg/dL (0.55-1.3)
[2022-04-29 00:35] LABS: BILIRUBIN,TOTAL 0.1 mg/dL (0.2-1); TOT PROT 7.4 g/dl (6.4-8.2)
[2022-04-29] MEDS ORDERED: CALCIUM GLUCONATE 10% - 1,000 MG/10 ML VIAL ONE (00:46)
[2022-04-29 00:51] LABS: ALBUMIN 3.4 g/dl (3.4-5.0)
[2022-04-29] MEDS ORDERED: KETOROLAC TROMETHAMINE 30 MG/1 ML VIAL IVPUSH ONE (01:55)
[2022-04-29] MEDS ORDERED: PHENAZOPYRIDINE HCL 100 MG TABLET (FP) PO ONE (01:55)
[2022-04-29] MEDS ORDERED: KETOROLAC TROMETHAMINE 15 MG/ML VIAL ONE (01:57)
[2022-04-29] MEDS ORDERED: PHENAZOPYRIDINE HCL 100 MG TABLET (FP) ONE (02:00)
== END 2022-04-29 02:05 | disposition home or self-care (01) ==
LOC: JER 22:42
PROC: 3E0333Z Introduction of Anti-inflammatory into Peripheral Vein, Percutaneous Approach (ICD-10-PCS; principal; 2022-04-28)
PROC: 3E033GC Introduction of Other Therapeutic Substance into Peripheral Vein, Percutaneous Approach (ICD-10-PCS; 2022-04-28)
DX: M54.50 Low back pain, unspecified (principal); R30.0 Dysuria; E11.9 Type 2 diabetes mellitus without complications
CPT/HCPCS: 0241U-QW; 36415; 74176-TC; 80053; 81003; 84703; 85025; 87086; 99284-25

== ENCOUNTER 2022-11-24 13:14 | Emergency (ER) | payer OTHER ==
[2022-11-24 13:28] VITALS: TEMP 98.7; BMI 23.2
[2022-11-24] MEDS ORDERED: ACETAMINOPHEN 1000 MG/100 ML BAG IVPB ONE (14:18)
[2022-11-24] MEDS ORDERED: ACETAMINOPHEN INJECTION 100 ML IVPB ONE (14:43)
[2022-11-24 15:01] LABS: EPI CELLS 9 /uL (0-25.1); HYALINE CASTS 0 /uL (0-3.1); URINE APPEARANCE CLEAR; URINE BACTERIA 683 /uL (0-1359); URINE BILIRUBIN NEGATIVE (NEGATIVE); URINE COLOR YELLOW; URINE GLUCOSE (UA) 3+ (NEGATIVE); URINE KETONE NEGATIVE (NEGATIVE); URINE LEUK ESTERASE NEGATIVE (NEGATIVE); URINE NITRITE NEGATIVE (NEGATIVE); URINE PROTEIN 1+ (NEGATIVE); URINE RBC 1 /uL (0-23.9); URINE UROBILINOGEN 0.2 mg/dL (0.2-1.0); URINE WBC 24 /uL (0-25.8)
[2022-11-24 15:04] LABS: BASO % 0.4 % (0-2.0); EOS % 0.9 % (0-4.5); HEMATOCRIT 38.4 % (32.4-45.2); LYMPH % 20.8 % (8-40); MCH 28.9 pg (25.7-33.7); MCHC 33.8 g/dl (32.0-36.0); MEAN CELL VOLUME 85.4 fl (80-96); MEAN PLT VOLUME 11.9 fl (7.5-11.1); MONO % 12.3 % (3.8-10.2); NEUT % 65.6 % (42.8-82.8); PLATELET COUNT 197 10^3/uL (134-434); RDW 13.8 % (11.6-15.6); WHITE BLOOD COUNT 8.5 K/mm3 (4.0-10.0)
[2022-11-24 15:48] LABS: POTASSIUM 4.1 mmol/L (3.5-5.1)
[2022-11-24 15:50] LABS: BLOOD UREA NITROGEN 13.8 mg/dL (7-18); CALCIUM 8.8 mg/dL (8.5-10.1)
[2022-11-24 15:53] LABS: CREATININE 0.4 mg/dL (0.55-1.3)
[2022-11-24 15:55] LABS: BILIRUBIN,TOTAL 0.2 mg/dL (0.2-1)
[2022-11-24] MEDS ORDERED: LACTATED RINGERS SOLUTION 1000 ML INFUS.BAG IV ONE (16:33)
[2022-11-24] MEDS ORDERED: CEFTRIAXONE 1 GM/50 ML BAG ONE (17:57)
[2022-11-24 20:04] VITALS: BP 102/69; PULSE 89; RESP 16
== END 2022-11-24 20:15 | disposition home or self-care (01) ==
LOC: JER 13:14
PROC: 3E033NZ Introduction of Analgesics, Hypnotics, Sedatives into Peripheral Vein, Percutaneous Approach (ICD-10-PCS; principal; 2022-11-24)
PROC: 3E033GC Introduction of Other Therapeutic Substance into Peripheral Vein, Percutaneous Approach (ICD-10-PCS; 2022-11-24)
DX: R10.9 Unspecified abdominal pain (principal); R30.0 Dysuria; R68.83 Chills (without fever); M54.9 Dorsalgia, unspecified; N39.0 Urinary tract infection, site not specified; Z20.822 Contact with and (suspected) exposure to COVID-19
CPT/HCPCS: 0241U-QW; 36415; 74176-TC; 80053; 81003; 84703; 85025; 87086; 87186; 99284-25

== ENCOUNTER 2023-03-15 06:54 | Emergency (ER) | payer OTHER ==
[2023-03-15 07:04] VITALS: BMI 24.4
[2023-03-15] MEDS ORDERED: SODIUM CHLORIDE 1,647 ML IV ONE (08:00)
[2023-03-15] MEDS ORDERED: ACETAMINOPHEN 1000 MG/100 ML BAG IVPB ONE (08:27)
[2023-03-15] MEDS ORDERED: ACETAMINOPHEN INJECTION 100 ML IVPB ONE (08:37)
[2023-03-15 08:59] LABS: BASO % 0.1 % (0-2.0); HEMATOCRIT 39.6 % (32.4-45.2); HEMOGLOBIN 12.8 GM/dL (10.7-15.3); LYMPH % 7.4 % (8-40); MCH 27.9 pg (25.7-33.7); MCHC 32.4 g/dl (32.0-36.0); MEAN CELL VOLUME 85.9 fl (80-96); MEAN PLT VOLUME 10.5 fl (7.5-11.1); NEUT % 86.5 % (42.8-82.8); PLATELET COUNT 235 10^3/uL (134-434); RBC 4.61 M/mm3 (3.60-5.2); RDW 13.6 % (11.6-15.6); WHITE BLOOD COUNT 17.9 K/mm3 (4.0-10.0)
[2023-03-15 09:02] LABS: EPI CELLS >36 /uL (0-25.1); HYALINE CASTS 1 /uL (0-3.1); PH,URINE 5.5 (5.0-8.0); URINE APPEARANCE CLEAR; URINE BACTERIA 596 /uL (0-1359); URINE BILIRUBIN NEGATIVE (NEGATIVE); URINE COLOR YELLOW; URINE GLUCOSE (UA) 3+ (NEGATIVE); URINE KETONE 1+ (NEGATIVE); URINE LEUK ESTERASE NEGATIVE (NEGATIVE); URINE NITRITE NEGATIVE (NEGATIVE); URINE PROTEIN 2+ (NEGATIVE); URINE RBC 12 /uL (0-23.9); URINE WBC 17 /uL (0-25.8)
[2023-03-15 09:42] LABS: CALCIUM 8.7 mg/dL (8.5-10.1)
[2023-03-15 09:43] LABS: ALBUMIN 3.5 g/dl (3.4-5.0); BLOOD UREA NITROGEN 9.9 mg/dL (7-18)
[2023-03-15 09:46] LABS: CREATININE 0.5 mg/dL (0.55-1.3)
[2023-03-15 09:47] LABS: BILIRUBIN,TOTAL 0.3 mg/dL (0.2-1)
[2023-03-15 10:28] LABS: VENOUS BASE EXCESS -3.5 mmol/L (-2-2); VENOUS O2 SATURATION 98.9 % (70-80); VENOUS PCO2 37.1 mmHg (38-52); VENOUS PH 7.376 (7.310-7.410)
[2023-03-15] MEDS ORDERED: SODIUM CHLORIDE 0.9% 1000 ML INFUS.BAG IV ONE (12:37)
[2023-03-15] MEDS ORDERED: METOCLOPRAMIDE HCL INJECTION 10 MG/2 ML VIAL IVPB ONE (12:45)
[2023-03-15] MEDS ORDERED: METOCLOPRAMIDE HCL INJECTION 10 MG/2 ML VIAL ONE (13:00)
[2023-03-15 13:18] LABS: EPI CELLS 8 /uL (0-25.1); HYALINE CASTS 0 /uL (0-3.1); PH,URINE 5.5 (5.0-8.0); URINE APPEARANCE CLEAR; URINE BACTERIA 41 /uL (0-1359); URINE BILIRUBIN NEGATIVE (NEGATIVE); URINE COLOR YELLOW; URINE GLUCOSE (UA) 3+ (NEGATIVE); URINE KETONE 1+ (NEGATIVE); URINE LEUK ESTERASE NEGATIVE (NEGATIVE); URINE NITRITE NEGATIVE (NEGATIVE); URINE PROTEIN 2+ (NEGATIVE); URINE RBC 15 /uL (0-23.9); URINE WBC 7 /uL (0-25.8)
[2023-03-15 14:59] VITALS: BP 117/53; PULSE 106; RESP 18; TEMP 99.7
== END 2023-03-15 14:41 | disposition home or self-care (01) ==
LOC: JER 06:54
PROC: 3E033NZ Introduction of Analgesics, Hypnotics, Sedatives into Peripheral Vein, Percutaneous Approach (ICD-10-PCS; principal; 2023-03-15)
PROC: 3E033GC Introduction of Other Therapeutic Substance into Peripheral Vein, Percutaneous Approach (ICD-10-PCS; 2023-03-15)
PROC: 3E033GC Introduction of Other Therapeutic Substance into Peripheral Vein, Percutaneous Approach (ICD-10-PCS; 2023-03-15)
PROC: 3E0337Z Introduction of Electrolytic and Water Balance Substance into Peripheral Vein, Percutaneous Approach (ICD-10-PCS; 2023-03-15)
DX: R50.9 Fever, unspecified (principal); R51.9 Headache, unspecified; R09.81 Nasal congestion; J02.9 Acute pharyngitis, unspecified; M79.10 Myalgia, unspecified site; R11.0 Nausea; B34.9 Viral infection, unspecified; R53.1 Weakness; R00.0 Tachycardia, unspecified; Z20.822 Contact with and (suspected) exposure to COVID-19
CPT/HCPCS: 0241U-QW; 36415; 71045-TC-FY; 80053; 81003; 82010; 82803; 83605; 84484; 84703; 85025; 87040; 87086; 93005; 93010; 99285-25

== ENCOUNTER 2023-04-04 23:34 | Inpatient (IN) | payer OTHER ==
[2023-04-05] MEDS ORDERED: ACETAMINOPHEN 1000 MG/100 ML BAG IVPB ONE (00:06)
[2023-04-05] MEDS ORDERED: LACTATED RINGERS SOLUTION 1000 ML INFUS.BAG IV ONE (00:06)
[2023-04-05] MEDS ORDERED: ONDANSETRON 4 MG/2 ML VIAL IVPUSH ONE ×2 (00:06→06:00)
[2023-04-05] MEDS ORDERED: ACETAMINOPHEN INJECTION 100 ML IVPB ONE (00:11)
[2023-04-05] MEDS ORDERED: ONDANSETRON 4 MG/2 ML VIAL ONE ×3 (00:13→07:24)
[2023-04-05] MEDS ORDERED: INSULIN REGULAR HUMAN 100 UNITS/ML *VIAL SQ ONE (00:40)
[2023-04-05 00:41] LABS: VENOUS BASE EXCESS -1.6 mmol/L (-2-2); VENOUS O2 SATURATION 30.7 % (70-80); VENOUS PCO2 44.3 mmHg (38-52); VENOUS PH 7.354 (7.310-7.410)
[2023-04-05 00:43] LABS: URINE APPEARANCE Clear; URINE BILIRUBIN Negative (NEGATIVE); URINE COLOR Yellow; URINE GLUCOSE (UA) 2+ (NEGATIVE); URINE KETONE 4+ (NEGATIVE); URINE LEUK ESTERASE Negative (NEGATIVE); URINE NITRITE Negative (NEGATIVE); URINE PROTEIN 3+ (NEGATIVE); URINE UROBILINOGEN 0.2 mg/dL (0.2-1.0)
[2023-04-05 00:45] LABS: BASO % 0.4 % (0-2.0); HEMATOCRIT 38.8 % (32.4-45.2); HEMOGLOBIN 12.5 GM/dL (10.7-15.3); LYMPH % 10.5 % (8-40); MCH 27.7 pg (25.7-33.7); MCHC 32.3 g/dl (32.0-36.0); MEAN CELL VOLUME 85.9 fl (80-96); MEAN PLT VOLUME 11.1 fl (7.5-11.1); MONO % 5.5 % (3.8-10.2); NEUT % 83.6 % (42.8-82.8); PLATELET COUNT 276 10^3/uL (134-434); RBC 4.52 M/mm3 (3.60-5.2); RDW 13.9 % (11.6-15.6); WHITE BLOOD COUNT 13.1 K/mm3 (4.0-10.0)
[2023-04-05] MEDS ORDERED: SODIUM CHLORIDE 0.9% 500 ML INFUS.BAG IV ONE (00:45)
[2023-04-05 01:05] LABS: POTASSIUM 4.1 mmol/L (3.5-5.1)
[2023-04-05 01:08] LABS: CALCIUM 8.6 mg/dL (8.5-10.1)
[2023-04-05 01:11] LABS: CREATININE 0.7 mg/dL (0.55-1.3)
[2023-04-05 01:13] LABS: TOT PROT 7.8 g/dl (6.4-8.2)
[2023-04-05 01:42] LABS: BLOOD UREA NITROGEN 11.6 mg/dL (7-18)
[2023-04-05 01:46] LABS: BILIRUBIN,TOTAL 0.1 mg/dL (0.2-1)
[2023-04-05 02:16] LABS: URINE RBC 30.5 /uL (0-23.9)
[2023-04-05 02:17] LABS: EPI CELLS 3.9 /uL (0-25.1); HYALINE CASTS 5.35 /uL (0-3.1); URINE BACTERIA 57738.4 /uL (0-1359); URINE WBC 776 /uL (0-25.8)
[2023-04-05] MEDS ORDERED: CEFTRIAXONE 1 GM in DEXTROSE 5%-WATER - 100 ML IVPB ONE (02:36)
[2023-04-05] MEDS ORDERED: CEFTRIAXONE 1 GM/50 ML BAG ONE (02:41)
[2023-04-05] MEDS ORDERED: ONDANSETRON 4 MG/2 ML VIAL IVPUSH PRN (06:27)
[2023-04-05] MEDS ORDERED: ERTAPENEM SODIUM 1 GM VIAL ONE (06:57)
[2023-04-05] MEDS ORDERED: KETOROLAC TROMETHAMINE 15 MG/ML VIAL ONE ×2 (07:17→18:18)
[2023-04-05] MEDS: ERTAPENEM SODIUM 1 GM in SODIUM CHLORIDE 50 ML IVPB SCH (07:30)
[2023-04-05] MEDS: INSULIN SLIDING SCALE (NOVOLOG) 1 VIAL SQ SCH ×4 (07:30→22:01)
[2023-04-05] MEDS: LACTATED RINGERS SOLUTION 1,000 ML/1,000 ML INFUS.BAG IV SCH (07:30)
[2023-04-05] MEDS: KETOROLAC TROMETHAMINE 15 MG/ML VIAL IVPUSH PRN ×2 (07:30→18:22)
[2023-04-05] MEDS: ENOXAPARIN NA (PORCINE) 40 MG/0.4 ML DISP.SYRIN SQ SCH (10:18)
[2023-04-05] MEDS: POLYETHYLENE GLYCOL (HEALTHYLAX) 3350 17 GM PACKET PO SCH ×2 (10:18→21:46)
[2023-04-05] MEDS ORDERED: KETOROLAC TROMETHAMINE 15 MG/ML VIAL IM ONE (10:59)
[2023-04-05] MEDS: SODIUM CHLORIDE 1,000 ML IV SCH (11:18)
[2023-04-05 12:02] LABS: BASO % 0.3 % (0-2.0); HEMATOCRIT 32.1 % (32.4-45.2); LYMPH % 13.5 % (8-40); MCH 28.3 pg (25.7-33.7); MCHC 34.2 g/dl (32.0-36.0); MEAN CELL VOLUME 82.8 fl (80-96); MEAN PLT VOLUME 10.9 fl (7.5-11.1); MONO % 10.7 % (3.8-10.2); NEUT % 75.5 % (42.8-82.8); PLATELET COUNT 238 10^3/uL (134-434); RBC 3.88 M/mm3 (3.60-5.2); RDW 13.6 % (11.6-15.6); WHITE BLOOD COUNT 11.7 K/mm3 (4.0-10.0)
[2023-04-05 12:21] LABS: POTASSIUM 3.8 mmol/L (3.5-5.1)
[2023-04-05 12:26] LABS: CHOLESTEROL 145 mg/dL (50-200)
[2023-04-05 12:27] LABS: CALCIUM 8.1 mg/dL (8.5-10.1); PHOSPHOROUS 1.8 mg/dL (2.5-4.9)
[2023-04-05 12:28] LABS: ALBUMIN 2.5 g/dl (3.4-5.0); BLOOD UREA NITROGEN 11.5 mg/dL (7-18); LDL CHOLESTEROL (ONLY SJRH) 84 mg/dL (5-100); MAGNESIUM 1.8 mg/dL (1.8-2.4)
[2023-04-05 12:29] LABS: BILIRUBIN,TOTAL 0.2 mg/dL (0.2-1); TOT PROT 6.7 g/dl (6.4-8.2)
[2023-04-05 12:30] LABS: HDL CHOLESTEROL 42 mg/dL (40-60)
[2023-04-05 12:31] LABS: CREATININE 0.4 mg/dL (0.55-1.3)
[2023-04-05 13:17] LABS: HIV INTERPRETATION NEGATIVE (NEGATIVE)
[2023-04-05] MEDS ORDERED: SODIUM CHLORIDE 0.9% 1000 ML INFUS.BAG IVPB ONE (15:06)
[2023-04-05] MEDS ORDERED: INSULIN (NOVOLOG) ASPART 100 UNITS/ML 10ML VIAL ONE ×3 (17:20→21:59)
[2023-04-05] MEDS: SERTRALINE HCL 50 MG TABLET (FP) PO SCH (21:47)
[2023-04-05] MEDS: ACETAMINOPHEN 325 MG TABLET (FP) PO PRN (21:47)
[2023-04-05] MEDS ORDERED: FLU VACCINE (FLULAVAL) PF 60 MCG/0.5 ML SYRINGE 2023-2024 IM ONE (22:30)
[2023-04-06] MEDS: SODIUM CHLORIDE 1,000 ML IV SCH ×2 (04:03→11:00)
[2023-04-06] MEDS: KETOROLAC TROMETHAMINE 15 MG/ML VIAL IVPUSH PRN ×3 (04:18→21:34)
[2023-04-06] MEDS ORDERED: INSULIN (NOVOLOG) ASPART 100 UNITS/ML 10ML VIAL ONE ×4 (06:27→21:30)
[2023-04-06] MEDS: INSULIN SLIDING SCALE (NOVOLOG) 1 VIAL SQ SCH ×4 (06:36→21:47)
[2023-04-06] MEDS: LACTATED RINGERS SOLUTION 1,000 ML/1,000 ML INFUS.BAG IV SCH (06:41)
[2023-04-06] MEDS: ERTAPENEM SODIUM 1 GM in SODIUM CHLORIDE 50 ML IVPB SCH (09:52)
[2023-04-06] MEDS: ENOXAPARIN NA (PORCINE) 40 MG/0.4 ML DISP.SYRIN SQ SCH (09:52)
[2023-04-06] MEDS: POLYETHYLENE GLYCOL (HEALTHYLAX) 3350 17 GM PACKET PO SCH ×2 (10:09→21:34)
[2023-04-06 10:15] LABS: BASO % 0.5 % (0-2.0); EOS % 0.1 % (0-4.5); HEMATOCRIT 31.7 % (32.4-45.2); HEMOGLOBIN 10.4 GM/dL (10.7-15.3); LYMPH % 15.5 % (8-40); MCH 27.9 pg (25.7-33.7); MCHC 32.9 g/dl (32.0-36.0); MEAN CELL VOLUME 84.9 fl (80-96); MEAN PLT VOLUME 11.7 fl (7.5-11.1); MONO % 10.9 % (3.8-10.2); PLATELET COUNT 224 10^3/uL (134-434); RBC 3.74 M/mm3 (3.60-5.2); RDW 13.4 % (11.6-15.6); WHITE BLOOD COUNT 10.9 K/mm3 (4.0-10.0)
[2023-04-06 10:41] LABS: POTASSIUM 3.5 mmol/L (3.5-5.1)
[2023-04-06 10:44] LABS: CALCIUM 7.9 mg/dL (8.5-10.1)
[2023-04-06 10:45] LABS: ALBUMIN 2.5 g/dl (3.4-5.0); BLOOD UREA NITROGEN 8.8 mg/dL (7-18)
[2023-04-06 10:48] LABS: CREATININE 0.3 mg/dL (0.55-1.3)
[2023-04-06 10:49] LABS: BILIRUBIN,TOTAL 0.3 mg/dL (0.2-1); TOT PROT 6.6 g/dl (6.4-8.2)
[2023-04-06] MEDS ORDERED: ACETAMINOPHEN/CAFFEINE/BUTALBITAL 1 TAB PO ONE (11:10)
[2023-04-06] MEDS ORDERED: LACTOBACILLUS ACIDOPHILUS 1 TABLET PO ONE (11:11)
[2023-04-06] MEDS ORDERED: FLU VACCINE (FLULAVAL) PF 60 MCG/0.5 ML SYRINGE 2023-2024 IM ONE (12:00)
[2023-04-06] MEDS: ACETAMINOPHEN 325 MG TABLET (FP) PO PRN (16:42)
[2023-04-06] MEDS: SERTRALINE HCL 50 MG TABLET (FP) PO SCH (21:34)
[2023-04-07] MEDS: ACETAMINOPHEN/CAFFEINE/BUTALBITAL 1 TAB PO PRN ×2 (02:06→10:36)
[2023-04-07] MEDS: KETOROLAC TROMETHAMINE 15 MG/ML VIAL IVPUSH PRN (05:51)
[2023-04-07] MEDS ORDERED: INSULIN (NOVOLOG) ASPART 100 UNITS/ML 10ML VIAL ONE ×5 (06:15→22:24)
[2023-04-07] MEDS: INSULIN SLIDING SCALE (NOVOLOG) 1 VIAL SQ SCH ×4 (06:23→22:29)
[2023-04-07] MEDS ORDERED: INSULIN (LEVEMIR) 100 UNITS/ML UNITS SQ ONE (06:55)
[2023-04-07] MEDS: ENOXAPARIN NA (PORCINE) 40 MG/0.4 ML DISP.SYRIN SQ SCH (09:18)
[2023-04-07] MEDS: ERTAPENEM SODIUM 1 GM in SODIUM CHLORIDE 50 ML IVPB SCH (09:18)
[2023-04-07] MEDS: POLYETHYLENE GLYCOL (HEALTHYLAX) 3350 17 GM PACKET PO SCH ×2 (09:19→22:27)
[2023-04-07 10:56] LABS: BASO % 0.2 % (0-2.0); EOS % 0.6 % (0-4.5); HEMATOCRIT 30.3 % (32.4-45.2); HEMOGLOBIN 10.6 GM/dL (10.7-15.3); MCH 28.8 pg (25.7-33.7); MCHC 35.1 g/dl (32.0-36.0); MEAN CELL VOLUME 82.3 fl (80-96); MEAN PLT VOLUME 11.4 fl (7.5-11.1); MONO % 9.4 % (3.8-10.2); NEUT % 67.8 % (42.8-82.8); PLATELET COUNT 216 10^3/uL (134-434); RBC 3.69 M/mm3 (3.60-5.2); RDW 13.6 % (11.6-15.6); WHITE BLOOD COUNT 8.2 K/mm3 (4.0-10.0)
[2023-04-07 11:14] LABS: POTASSIUM 3.8 mmol/L (3.5-5.1)
[2023-04-07 11:16] LABS: ALBUMIN 2.5 g/dl (3.4-5.0); CALCIUM 8.1 mg/dL (8.5-10.1); MAGNESIUM 2.1 mg/dL (1.8-2.4)
[2023-04-07 11:20] LABS: CREATININE 0.3 mg/dL (0.55-1.3)
[2023-04-07 11:21] LABS: BILIRUBIN,TOTAL 0.2 mg/dL (0.2-1)
[2023-04-07 11:22] LABS: TOT PROT 6.6 g/dl (6.4-8.2)
[2023-04-07] MEDS ORDERED: SUMAtriptan SUCCINATE 25 MG TABLET PO ONE ×2 (12:16→21:00)
[2023-04-07] MEDS ORDERED: CEFTRIAXONE 1 GM in DEXTROSE 5%-WATER - 50 ML IVPB ONE (12:17)
[2023-04-07] MEDS ORDERED: cefTRIAXone SODIUM 1 GM VIAL ONE (13:39)
[2023-04-07 16:00] VITALS: BMI 25.6
[2023-04-07] MEDS: SERTRALINE HCL 50 MG TABLET (FP) PO SCH (22:27)
[2023-04-07] MEDS: INSULIN (LEVEMIR) 100 UNITS/ML UNITS SQ SCH (22:27)
[2023-04-08 07:18] VITALS: TEMP 98.4
[2023-04-08] MEDS: INSULIN (LEVEMIR) 100 UNITS/ML UNITS SQ SCH (07:48)
[2023-04-08] MEDS: INSULIN SLIDING SCALE (NOVOLOG) 1 VIAL SQ SCH ×2 (07:48→12:19)
[2023-04-08] MEDS ORDERED: CEFTRIAXONE 1 GM in DEXTROSE 5%-WATER - 50 ML IVPB ONE (08:40)
[2023-04-08] MEDS: ENOXAPARIN NA (PORCINE) 40 MG/0.4 ML DISP.SYRIN SQ SCH (09:54)
[2023-04-08] MEDS: POLYETHYLENE GLYCOL (HEALTHYLAX) 3350 17 GM PACKET PO SCH (09:55)
[2023-04-08 10:45] LABS: BASO % 0.3 % (0-2.0); EOS % 0.8 % (0-4.5); HEMATOCRIT 31.3 % (32.4-45.2); HEMOGLOBIN 10.6 GM/dL (10.7-15.3); LYMPH % 23.8 % (8-40); MCH 28.2 pg (25.7-33.7); MCHC 33.9 g/dl (32.0-36.0); MEAN PLT VOLUME 11.2 fl (7.5-11.1); MONO % 8.6 % (3.8-10.2); NEUT % 66.5 % (42.8-82.8); PLATELET COUNT 249 10^3/uL (134-434); RBC 3.77 M/mm3 (3.60-5.2); RDW 13.4 % (11.6-15.6); WHITE BLOOD COUNT 7.1 K/mm3 (4.0-10.0)
[2023-04-08] MEDS ORDERED: SUMAtriptan SUCCINATE 25 MG TABLET PO ONE (10:45)
[2023-04-08 11:24] LABS: ALBUMIN 2.5 g/dl (3.4-5.0); BILIRUBIN,TOTAL 0.2 mg/dL (0.2-1); BLOOD UREA NITROGEN 4.5 mg/dL (7-18); CALCIUM 8.4 mg/dL (8.5-10.1); CREATININE 0.3 mg/dL (0.55-1.3); TOT PROT 6.7 g/dl (6.4-8.2)
[2023-04-08 11:27] LABS: MAGNESIUM 2.1 mg/dL (1.8-2.4)
[2023-04-08 11:54] LABS: POTASSIUM 3.4 mmol/L (3.5-5.1)
[2023-04-08] MEDS ORDERED: INSULIN (NOVOLOG) ASPART 100 UNITS/ML 10ML VIAL ONE (12:04)
[2023-04-08 15:44] VITALS: BP 142/80; PULSE 75; RESP 18
[2023-04-08] MEDS ORDERED: CEFUROXIME AXETIL 500 MG TABLET PO SCH (22:00)
== END 2023-04-08 17:30 | disposition home or self-care (01) | DRG 463 ==
LOC: JER 23:34 → JERBED 04-05 03:34 → OBSVTOIN 04-05 06:03 → J8W 04-05 21:35
PROVIDERS: ADMIT Internal Medicine; ATTEND Nurse Practitioner Family
DX: N39.0 Urinary tract infection, site not specified (principal); R63.4 Abnormal weight loss; Z68.25 Body mass index [BMI] 25.0-25.9, adult; E11.65 Type 2 diabetes mellitus with hyperglycemia; E86.0 Dehydration; N20.0 Calculus of kidney; B96.20 Unspecified Escherichia coli [E. coli] as the cause of diseases classified elsewhere; F32.A Depression, unspecified; I10 Essential (primary) hypertension
CPT/HCPCS: 36415; 71046-TC-FY; 74176-TC; 80053; 80061; 81003; 82010; 82803; 82962; 83036; 83690; 83735; 84100; 84436; 84443; 84703; 85025; 87086; 87186; 87389; 90686; 93005; 93010; 99285-25; G0008; G0378

== ENCOUNTER 2023-07-17 08:25 | Emergency (ER) | payer SELFPAY ==
[2023-07-17 08:34] VITALS: BP 119/81; PULSE 103; RESP 18; TEMP 99; BMI 26.9
[2023-07-17] MEDS ORDERED: KETOROLAC TROMETHAMINE 30 MG/1 ML VIAL IM ONE (08:48)
[2023-07-17] MEDS ORDERED: ACETAMINOPHEN 500 MG TABLET (FP) PO ONE (08:49)
[2023-07-17] MEDS ORDERED: LIDOCAINE 4% PATCH TP ONE ×2 (08:49→08:51)
[2023-07-17] MEDS ORDERED: KETOROLAC TROMETHAMINE 30 MG/1 ML VIAL ONE (08:51)
[2023-07-17] MEDS ORDERED: ACETAMINOPHEN 500 MG TABLET (FP) ONE (08:52)
[2023-07-17] MEDS ORDERED: LIDOCAINE PATCH REMOVAL MC ONE (22:00)
== END 2023-07-17 09:03 | disposition home or self-care (01) ==
LOC: JER 08:25
PROC: 3E0233Z Introduction of Anti-inflammatory into Muscle, Percutaneous Approach (ICD-10-PCS; principal; 2023-07-17)
DX: M54.50 Low back pain, unspecified (principal); M54.6 Pain in thoracic spine; W01.0XXA Fall on same level from slipping, tripping and stumbling without subsequent striking against object, initial encounter
CPT/HCPCS: 99284-25